=== PATIENT | female | born 1995 | race Caucasian/White ===

== ENCOUNTER 2017-06-20 11:56 | Outpatient (CLI) | payer BC, OTHER ==
[2017-06-20 12:35] VITALS: BP 126/65; PULSE 80; RESP 16; TEMP 97.7
--- NOTE | 2017-08-01 10:13 | P.MSEPDOC ---
Presenting Problems - Arrival Data Date of Arrival on Unit: 06/20/17 Time of Arrival on Unit: 11:56 Mode of Transport: Ambulatory - Complaint OB-Reason for Admission/Chief Complaint: Rule Out PROM Comment: pt arrived c/o moisture in underwear and mucus with some blood when pt wiped. pt questioning whether her water broke Medical History - Information : 1 Para: 0 Term: 0 : 0 Abortions: Spontaneous or Elective: 0 Number of Living Children: 0 - Gestational Age Gestational Age by GANESH (wks/days): 39 Weeks and 1 Days Review of Systems - Review of Systems Constitutional: No problems Breast: No problems ENT: No problems Cardiovascular: No problems Respiratory: No problems Gastrointestinal: No problems Genitourinary: No problems Musculoskeletal: No problems Neurological: No problems Skin: No problems Vital Signs - Temperature Temperature: 97.7 F Temperature Source: Oral - Pulse Right Brachial Pulse Rate: 80 Pulse Assessment Method: Automatic Cuff - Respirations Respiratory Rate: 16 Oxygen Delivery Method: Room Air O2 Sat by Pulse Oximetry: 98 - Blood Pressure Right Arm Blood Pressure: 126/65 Blood Pressure Mean: 85 Blood Pressure Source: Automatic Cuff Medical Screen Scoring (Post) - Cervical Exam Dilation: 1-3 cm = 1 Membranes: Intact - Uterine Contractions Frequency: N/A - Maternal Vital Signs Maternal Temperature: N/A Maternal Blood Pressure: N/A Signs of Preeclampsia: N/A Maternal Respirations: N/A - Pain Assessment Pain Scale Used: Numeric (1 - 10) Pain Intensity: 1 Pain Management Goal: 1 Pain Behavior: Vocalization - Maternal Trauma Maternal Trauma: N/A - Assessment Heart Rate: 130 Heart Rate - NICHD Category: Category I (Normal) = 0 NST: Reactive Position: N/A Station: N/A - Total Score Total Score (Post): 1 - Post Treatment Level of Risk Post Treatment Level of Risk: Low (0-5) Physician Notification (Post) - Physician Notified Physician Notified Date: 06/20/17 Physician Notified Time: 12:50 Physician/Practitioner Notified:: dr lira Spoke With: dr lira New Order Received: No - Notification Comment Comment: amnisure negative reactive nst. return friday for scheduled induction Disposition - Disposition OB Disposition: Discharge to home Discharge Date: 06/20/17 Discharge Time: 13:03 I agree with the RN Medical Screening Exam: Yes Risk & Benefit of care provided described in d/c instruction: Yes Diagnosis: FALSE LABOR AT OR AFTER 37 COMPLETED WEEKS OF GESTATION
== END 2017-06-20 13:03 | disposition home or self-care (01) ==
LOC: FBPOP 11:56
PROVIDERS: ATTEND Obstetrics & Gynecology Obstetrics
DX: O47.1 False labor at or after 37 completed weeks of gestation (principal); Z3A.39 39 weeks gestation of pregnancy
CPT/HCPCS: 59025; 84112; 99213

== ENCOUNTER 2017-06-23 06:04 | Inpatient (IN) | payer BC, OTHER ==
[2017-06-23] MEDS: LACTATED RINGERS 1,000 ML IV SCH ×3 (06:20→15:15)
[2017-06-23] MEDS ORDERED: PENICILLIN G POTASSIUM 5,000,000 UNIT in DEXTROSE 5% IN WATER 100 ML IVPB STA ×2 (06:23)
[2017-06-23] MEDS ORDERED: TERBUTALINE 1 MG/ML VIAL SQ PRN (06:23)
[2017-06-23] MEDS ORDERED: OXYTOCIN 10 UNIT/ML 1 ML VIAL IM PRN (06:23)
[2017-06-23] MEDS ORDERED: CARBOPROST TROMETHAMINE 250 MCG/ML 1 ML AMP IM PRN (06:23)
[2017-06-23] MEDS ORDERED: METHYLERGONOVINE 0.2 MG/ML 1 ML AMP IM PRN (06:23)
[2017-06-23] MEDS ORDERED: LIDOCAINE 1% (PF) 10 MG/ML (30 ML SDV) SQ PRN (06:23)
[2017-06-23] MEDS ORDERED: OXYTOCIN 20 UNITS/1000 ML NS 1,000 ML IV SCH ×2 (06:30→18:00)
[2017-06-23 06:32] LABS: Basophils % (A) 0 %; Eosinophils # (A) 0.1 k/uL (0-0.7); Eosinophils % (A) 1 %; HCT 39.5 % (34.0-46.0); HGB 13.1 gm/dL (11.4-16.0); Lymphocytes % (A) 13 %; MCH 29.7 pg (25.0-35.0); MCHC 33.1 g/dL (31.0-37.0); MCV 89.8 fL (80.0-100.0); Monocytes # (A) 0.4 k/uL (0-1.0); Monocytes % (A) 5 %; Neutrophils # (A) 6.1 k/uL (1.3-7.7); Neutrophils % (A) 79 %; Platelet Count 298 k/uL (150-450); WBC 7.7 k/uL (4.0-11.0)
[2017-06-23 06:46] VITALS: BMI 45.8
--- NOTE | 2017-06-23 08:34 | P.HPOB ---
History of Present Illness H&P Date: 06/23/17 Chief Complaint: IUP at 39-4/7 weeks, elective induction of labor This is a 22-year-old 1 para 0 at 39-4/7 weeks with an estimated due date of June 26. She presents to labor and delivery for elective induction of labor. She denies any concerns, and notes irregular contractions. She denies loss of fluid or vaginal bleeding and states good movement. Her blood type is O+, rubella immune, hepatitis B surface injured negative, GBS is positive, HIV negative, RPR nonreactive. She does have a history of hypothyroidism and marijuana use with a positive UDS on 01/07/2017. Review of Systems Constitutional: Denies chills, Denies fever Respiratory: Denies cough, Denies dyspnea Gastrointestinal: Denies constipation, Denies diarrhea Genitourinary: Reports Past Medical History Past Medical History: Thyroid Disorder History of Any Multi-Drug Resistant Organisms: None Reported Past Surgical History: No Surgical Hx Reported Past Anesthesia/Blood Transfusion Reactions: Unable to Obtain Past Psychological History: No Psychological Hx Reported Smoking Status: Former smoker Past Alcohol Use History: None Reported Past Drug Use History: None Reported - Past Family History Father History Unknown: Yes Family Medical History: Diabetes Mellitus Mother Family Medical History: Thyroid Disorder Medications and Allergies Home Medications Medication Instructions Recorded Confirmed Type Pedi Multivit No.25/Folic Acid 2 tab PO DAILY 06/20/17 06/23/17 History [Flintstones Multivit Chew Tab] Allergies Allergy/AdvReac Type Severity Reaction Status Date / Time No Known Allergies Allergy Verified 06/23/17 06:22 Exam Osteopathic Statement: *. No significant issues noted on an osteopathic structural exam other than those noted in the History and Physical/Consult. - Vital Signs Vital signs: Vital Signs Temp Pulse Resp BP 06/23/17 06:21 97.1 F L 105 H 18 138/67 Intake and Output 06/22/17 06/23/17 06/23/17 22:59 06:59 14:59 Other: Weight 140.614 kg - OBG Physical Exam Abdomen: Gravid and appropriate for gestational age Cervix: 3-4, 60, -2 rupture of membranes with clear fluid noted Results Result Diagrams: 06/23/17 06:20 Assessment and Plan (1) Term Narrative/Plan: We'll plan Pitocin induction of labor. Pitocin is ordered and will be managed per protocol. She would like an epidural during this labor. Current Visit: Yes Status: Acute Code(s): Z34.80 - ENCOUNTER FOR SUPRVSN OF NORMAL , UNSP TRIMESTER SNOMED Code(s): 06926954 (2) Positive GBS test Narrative/Plan: Antibiotics are ordered, amoxicillin will be given for prophylaxis. Current Visit: Yes Status: Acute Code(s): B95.1 - STREPTOCOCCUS, GROUP B, CAUSING DISEASES [facility] SNOMED Code(s): 9057018851933 (3) Marijuana use Narrative/Plan: We will obtain UDS from patient, and patient is informed of meconium screen will be needed from the baby. Current Visit: Yes Status: Acute Code(s): F12.90 - CANNABIS USE, UNSPECIFIED , UNCOMPLICATED SNOMED Code(s): 483133412
[2017-06-23 09:03] LABS: Amphetamine Screen,Urine Not Detected (NotDetected); Barbiturate Screen,Urine Detected (NotDetected); Benzodiazepines Screen,Urine Not Detected (NotDetected); Cocaine Screen,Urine Not Detected (NotDetected); Methadone Screen, Urine Not Detected (NotDetected); Opiate Screen,Urine Not Detected (NotDetected); Oxycodone Screen, Urine Not Detected (NotDetected); Phencyclidine Screen,Urine Not Detected (NotDetected); Tricyclic Antidepressant,Urine Not Detected (NotDetected); Urn Cannabinoid Scrn Not Detected (NotDetected)
[2017-06-23] MEDS ORDERED: BUTORPHANOL 1 MG/ML 1 ML VIAL IV ONE (09:46)
[2017-06-23] MEDS: PENICILLIN G POTASSIUM 2,500,000 UNIT in DEXTROSE 5% IN WATER 100 ML IVPB SCH ×4 (10:58→15:12)
[2017-06-23] MEDS ORDERED: BUPIVACAINE (PF) 0.25% 30 ML VIAL ONE (11:29)
[2017-06-23] MEDS ORDERED: SODIUM CHLORIDE 0.9% 100 ML BAG ONE (11:29)
[2017-06-23] MEDS ORDERED: fentaNYL (PF) 50 MCG/ML 5 ML AMP ONE (11:29)
[2017-06-23] MEDS ORDERED: diphenhydrAMINE 25 MG CAP PO PRN (17:46)
[2017-06-23] MEDS ORDERED: Acetaminophen-Codeine 300-30mg TAB PO PRN ×2 (17:46)
[2017-06-23] MEDS ORDERED: HYDROCORTISONE 2.5% RECTAL CREAM 30 GM TUBE RECTAL PRN (17:46)
[2017-06-23] MEDS ORDERED: ZOLPIDEM 5 MG TAB PO PRN (17:46)
[2017-06-23] MEDS ORDERED: diphenhydrAMINE 50 MG CAP PO PRN (17:46)
[2017-06-23] MEDS ORDERED: ACETAMINOPHEN TAB 325 MG TAB PO PRN (17:46)
[2017-06-23] MEDS ORDERED: SIMETHICONE 80 MG CHEWABLE PO PRN (17:46)
[2017-06-23] MEDS ORDERED: BENZOCAINE/MENTHOL SPRAY 1 GM/SPRAY AEROSOL TOPICAL PRN (17:46)
[2017-06-23] MEDS ORDERED: WITCH HAZEL 1 EACH MED..PAD TOPICAL PRN (17:46)
[2017-06-23] MEDS ORDERED: LANOLIN CREAM 5 GM TUBE TOPICAL PRN (17:46)
[2017-06-23] MEDS ORDERED: diphenhydrAMINE 50 MG/ML 1 ML VIAL IVP PRN ×2 (17:46)
--- NOTE | 2017-06-23 17:53 | P.PROBDLV ---
Vaginal Delivery Note - . Vaginal Delivery Note: This very pleasant 22-year-old 1 para 0 at 39-4/7 weeks that presented to labor and delivery for elective induction of labor today. Patient was started on Pitocin induction of labor and progressed through labor eventually having amniotomy being performed clear fluid was obtained. She requested an epidural soon afterwards and was comfortable she progressed through labor becoming complete and had a spontaneous vaginal delivery of a viable male infant at 17 ;29, weight of 7 lbs. 11 oz. and Apgars of 9 and 9 at one and 5 minutes respectively. Patient pushed down to , had infant's head was delivered in the usual fashion, anterior shoulder gently delivered followed by posterior shoulder , A Spontaneous cry was noted at . A loose nuchal cord x 2 was noted and delviered through with out difficulty. The cord was then doubly clamped and cut a three-vessel cord was noted. The placenta was then delivered spontaneously intact. On inspection the patient's vaginal vault a second- degree midline laceration was noted this was repaired in the usual fashion with 3-0 Vicryl. A small anterior vaginal laceration was noted in addition this was then repaired with 4-0 chromic. Hemostasis was then appreciated the uterus then felt to be firm and below the umbilicus. Estimated blood loss was felt to be around 300 mL, patient tolerated delivery well was doing well in addition.
[2017-06-23] MEDS: SENNOSIDES-DOCUSATE SODIUM 1 EACH TAB PO SCH (19:59)
[2017-06-23] MEDS: IBUPROFEN 600 MG TAB PO PRN (23:44)
[2017-06-24 09:04] VITALS: TEMP 97.9
--- NOTE | 2017-06-24 10:20 | P.DS ---
Providers Date of admission: 06/23/17 06:04 Expected date of discharge: 06/24/17 Attending physician: Neeta Levy Primary care physician: Stated None - Discharge Diagnosis(es) (1) Term This is a very pleasant 22-year-old 1 para 0 that presented to labor and delivery yesterday for elective induction of labor. Patient was begun on Pitocin augmentation of labor and progressed to complete. She did eventually get an epidural and had a normal spontaneous vaginal delivery of a viable male infant at 1729, Apgars of 9 and 9 at one and 5 minutes respectively. Jus Contreras, weight 7 lbs. 11 oz. Her course has been uneventful. She is ambulating and voiding without difficulty. She is tolerating a regular diet without nausea or vomiting. She denies complaints and wishes to be discharged home. She is breast-feeding in addition without difficulty Current Visit: Yes Status: Acute (2) Positive GBS test Current Visit: Yes Status: Acute (3) Marijuana use Current Visit: Yes Status: Acute Plan - Discharge Summary New Discharge Prescriptions: No Action Pedi Multivit No.25/Folic Acid [Flintstones Multivit Chew Tab] 2 tab PO DAILY Discharge Medication List Pedi Multivit No.25/Folic Acid [Flintstones Multivit Chew Tab] 2 tab PO DAILY [History] Follow up Appointment(s)/Referral(s): Neeta Levy DO [Doctor of Osteopathic Medicine] - 4 Weeks Patient Instructions/Handouts: Vaginal Delivery (DC), Caring for Your Baby (DC) , Your [place]'s Appearance (DC)
[2017-06-24] MEDS ORDERED: PRENATAL VIT-IRON-FOLIC ACID 1 EACH CAP PO SCH (12:00)
[2017-06-24] MEDS: IBUPROFEN 600 MG TAB PO PRN (17:09)
[2017-06-24 17:14] VITALS: BP 105/65; PULSE 87; RESP 18
[2017-06-24] MEDS: SENNOSIDES-DOCUSATE SODIUM 1 EACH TAB PO SCH (18:16)
== END 2017-06-24 16:40 | disposition home or self-care (01) | DRG 775 ==
LOC: 4FBP 06:04
PROVIDERS: ADMIT Obstetrics & Gynecology Obstetrics; ATTEND Obstetrics & Gynecology Obstetrics
DX: O99.824 Streptococcus B carrier state complicating childbirth (principal); F12.90 Cannabis use, unspecified, uncomplicated; Z37.0 Single live birth; Z3A.39 39 weeks gestation of pregnancy; O99.324 Drug use complicating childbirth; O69.81X0 Labor and delivery complicated by cord around neck, without compression, not applicable or unspecified; Z87.891 Personal history of nicotine dependence; O71.4 Obstetric high vaginal laceration alone
CPT/HCPCS: 80306; 85025; 88307

== ENCOUNTER 2018-06-15 14:36 | Emergency (ER) | payer BC, OTHER ==
--- NOTE | 2018-06-15 15:09 | ED ---
General Adult HPI - General Chief complaint: Abdominal Pain Stated complaint: Constipation Time Seen by Provider: 06/15/18 14:46 Source: patient, RN notes reviewed Mode of arrival: ambulatory Limitations: no limitations - History of Present Illness Initial comments: 22-year-old female presents to the emergency department for a chief complaint of painful hemorrhoids. Patient states she has had hemorrhoids since November. She states that over the past 3 months they have been very painful. She states the pain is worsened when having a bowel movement. Patient states she went to another emergency department yesterday and they gave her a GI referral. She states she came here to see if we could do anything else. She denies any abdominal pain at this time. Denies bloody stools. Patient has no other complaints at this time including shortness of breath, chest pain, abdominal pain, nausea or vomiting, headache, or visual changes. - Related Data Home Medications Medication Instructions Recorded Confirmed Ibuprofen [Motrin Ib] 600 mg PO Q6H PRN 06/15/18 06/15/18 Polyethylene Glycol 3350 [Miralax] 17 gm PO DAILY 06/15/18 06/15/18 Allergies Allergy/AdvReac Type Severity Reaction Status Date / Time No Known Allergies Allergy Verified 06/15/18 14:47 Review of Systems ROS Statement: Those systems with pertinent positive or pertinent negative responses have been documented in the HPI. ROS Other: All systems not noted in ROS Statement are negative. Past Medical History Past Medical History: Thyroid Disorder Additional Past Medical History / Comment(s): hemorrhoids History of Any Multi-Drug Resistant Organisms: None Reported Past Surgical History: No Surgical Hx Reported Past Anesthesia/Blood Transfusion Reactions: Unable to Obtain Past Psychological History: No Psychological Hx Reported Smoking Status: Former smoker Past Alcohol Use History: None Reported Past Drug Use History: None Reported - Past Family History Father History Unknown: Yes Family Medical History: Diabetes Mellitus Mother Family Medical History: Thyroid Disorder General Exam Limitations: no limitations General appearance: alert, in no apparent distress Head exam: Present: atraumatic, normocephalic, normal inspection Eye exam: Present: normal appearance, PERRL, EOMI. Absent: scleral icterus, conjunctival injection, periorbital swelling ENT exam: Present: normal exam, mucous membranes moist Neck exam: Present: normal inspection, full ROM. Absent: tenderness, meningismus, lymphadenopathy Respiratory exam: Present: normal lung sounds bilaterally. Absent: respiratory distress, wheezes, rales, rhonchi, stridor Cardiovascular Exam: Present: regular rate, normal rhythm, normal heart sounds. Absent: systolic murmur, diastolic murmur, rubs, gallop, clicks GI/Abdominal exam: Present: soft, normal bowel sounds. Absent: distended, tenderness, guarding, rebound, rigid Rectal exam: Present: hemorrhoids (Patient has a external hemorrhoid, hemorrhoid not thrombosed.) Neurological exam: Present: alert, oriented X3, CN II-XII intact Psychiatric exam: Present: normal affect, normal mood Course Vital Signs 06/15/18 14:38 Temperature 98.5 F Pulse Rate 91 Respiratory 18 Rate Blood Pressure 153/100 O2 Sat by Pulse 100 Oximetry Medical Decision Making - Medical Decision Making 22-year-old female without any past medical history presents for painful hemorrhoids. These have been ongoing for months. Sates pain occurs when she has a bowel movement. Patient states she was seen at another emergency department and given a referral to GI but wanted to see if we could do anything differently. On exam there is an external hemorrhoid present however this is not thrombosed. At this time patient will be given a referral to general surgery. Discussed continuing hemorrhoid cream and returning if she has any worsening symptoms. Disposition Clinical Impression: Hemorrhoids Disposition: HOME SELF-CARE Condition: Good Additional Instructions: Please follow up with general surgery for hemorrhoid. Please follow-up with primary care for blood pressure. Please return here to the emergency department if you have any worsening symptoms. Is patient prescribed a controlled substance at d/c from ED?: No Referrals: Manda Correia MD [Primary Care Provider] - 1-2 days Mario Geronimo MD [STAFF PHYSICIAN] - 1-2 days Time of Disposition: 15:09
[2018-06-15 15:28] VITALS: BP 132/81; PULSE 86; RESP 16; TEMP 98.9
== END 2018-06-15 15:29 | disposition home or self-care (01) ==
LOC: EC 14:36
DX: K64.4 Residual hemorrhoidal skin tags (principal); Z87.891 Personal history of nicotine dependence
CPT/HCPCS: 99283

== ENCOUNTER 2020-05-23 10:00 | Outpatient (CLI) | payer BC, OTHER ==
[2020-05-23 10:43] LABS: Creatinine,Urine Random 34.2 mg/dL; Protein/Creatinine Ratio,Urine 0.38
[2020-05-23 10:47] LABS: Basophils # (A) 0.1 k/uL (0-0.2); Basophils % (A) 1 %; Eosinophils # (A) 0.1 k/uL (0-0.7); Eosinophils % (A) 1 %; HCT 37.9 % (34.0-46.0); HGB 12.9 gm/dL (11.4-16.0); Lymphocytes # (A) 1.5 k/uL (1.0-4.8); Lymphocytes % (A) 16 %; MCH 30.3 pg (25.0-35.0); MCHC 33.9 g/dL (31.0-37.0); MCV 89.4 fL (80.0-100.0); Mean Platelet Volume 8.4; Monocytes # (A) 0.4 k/uL (0-1.0); Monocytes % (A) 4 %; Neutrophils # (A) 7.3 k/uL (1.3-7.7); Neutrophils % (A) 78 %; Platelet Count 275 k/uL (150-450); RBC 4.24 m/uL (3.80-5.40); RDW 13.7 % (11.5-15.5); WBC 9.4 k/uL (3.8-10.6)
[2020-05-23 10:47] LABS: Appearance,Urine Cloudy (Clear); Bacteria,Urine Many /hpf; Bilirubin,Urine Negative (Negative); Blood,Urine Negative (Negative); Color,Urine Light Yellow; Glucose,Urine (UA) Negative (Negative); Ketones,Urine Negative (Negative); Leukocyte Esterase,Urine Large (Negative); Nitrite,Urine Negative (Negative); PH, Urine 6.5 (5.0-8.0); Protein,Urine Negative (Negative); Specific Gravity,Urine 1.003 (1.001-1.035); Squamous Epithelial Cell,Urine 2 /hpf (0-4); Urobilinogen,Urine <2.0 mg/dL (<2.0); WBC,Urine 15 /hpf (0-5)
[2020-05-23 11:10] LABS: ALT 78 U/L (4-34); AST 48 U/L (14-36); African American GFR (CKD) >90 (>60 ml/min/1.73 sqM); Blood Urea Nitrogen 5 mg/dL (7-17); LDH 296 U/L (313-618); Non-African American GFR(CKD) >90 (>60 ml/min/1.73 sqM); Uric Acid 4.1 mg/dL (3.7-7.4)
[2020-05-23 11:14] LABS: Prothrombin Time 10.4 sec (9.0-12.0)
[2020-05-23] MEDS ORDERED: BETAMET ACET-BETAMETH SOD PHOS 6 MG/ML MDV IM SCH (13:15)
--- NOTE | 2020-05-23 14:21 | US ---
EXAMINATION TYPE: US liver DATE OF EXAM: 05/23/2020 COMPARISON: NONE CLINICAL HISTORY: elevated liver enzymes, PIH. Elevated liver enzymes, patient is 32 weeks EXAM MEASUREMENTS: The was not evaluated at this time. Liver Length: 20.3 cm Gallbladder Wall: 0.2 cm CBD: 0.4 cm Right Kidney: 13.8 x 3.9 x 6.1cm Pancreas: limited evaluation due to overlying bowel Liver: enlarged, attenuating Gallbladder: no evidence of stones Evidence for sonographic Roberson's sign: no CBD: appears wnl Right Kidney: no evidence of hydronephrosis IMPRESSION: 1. Right upper quadrant ultrasound appears unremarkable
== END 2020-05-23 13:47 | disposition home or self-care (01) ==
LOC: FBPOP 10:00
PROVIDERS: ATTEND Obstetrics & Gynecology
DX: O14.90 Unspecified pre-eclampsia, unspecified trimester (principal); Z3A.00 Weeks of gestation of pregnancy not specified
CPT/HCPCS: 59025; 96372; 82570; 84156; 82565; 83615; 84450; 84460; 84520; 84550; 85025; 85610; 85730; 81001; 76705; G0463; J0702; 99215

== ENCOUNTER 2020-05-24 12:53 | Outpatient (CLI) | payer BC, OTHER ==
[2020-05-24] MEDS ORDERED: BETAMET ACET-BETAMETH SOD PHOS 6 MG/ML MDV IM SCH (13:15)
[2020-05-24 13:38] LABS: Amorphous Sediment,Urine Rare /hpf; Appearance,Urine Clear (Clear); Bacteria,Urine Occasional /hpf; Bilirubin,Urine Negative (Negative); Blood,Urine Negative (Negative); Color,Urine Yellow; Glucose,Urine (UA) Negative (Negative); Ketones,Urine Negative (Negative); Leukocyte Esterase,Urine Small (Negative); Nitrite,Urine Negative (Negative); PH, Urine 6.5 (5.0-8.0); Protein,Urine Negative (Negative); Specific Gravity,Urine 1.005 (1.001-1.035); Squamous Epithelial Cell,Urine <1 /hpf (0-4); Urobilinogen,Urine <2.0 mg/dL (<2.0); WBC,Urine 3 /hpf (0-5)
[2020-05-24 13:58] LABS: Creatinine,Urine Random 61.9 mg/dL; Protein/Creatinine Ratio,Urine 0.226
[2020-05-24 14:29] LABS: Basophils % (A) 0 %; Eosinophils % (A) 0 %; HCT 38.3 % (34.0-46.0); HGB 12.4 gm/dL (11.4-16.0); Lymphocytes # (A) 1.9 k/uL (1.0-4.8); Lymphocytes % (A) 16 %; MCH 29.6 pg (25.0-35.0); MCHC 32.3 g/dL (31.0-37.0); MCV 91.5 fL (80.0-100.0); Mean Platelet Volume 8.4; Monocytes # (A) 0.6 k/uL (0-1.0); Monocytes % (A) 5 %; Neutrophils # (A) 9.1 k/uL (1.3-7.7); Neutrophils % (A) 77 %; Platelet Count 299 k/uL (150-450); RBC 4.18 m/uL (3.80-5.40); RDW 14.3 % (11.5-15.5); WBC 11.9 k/uL (3.8-10.6)
[2020-05-24 14:38] LABS: ALT 100 U/L (4-34); AST 64 U/L (14-36); African American GFR (CKD) >90 (>60 ml/min/1.73 sqM); Blood Urea Nitrogen 7 mg/dL (7-17); LDH 436 U/L (313-618); Non-African American GFR(CKD) >90 (>60 ml/min/1.73 sqM); Uric Acid 3.8 mg/dL (3.7-7.4)
--- NOTE | 2020-06-27 18:59 | P.MSEPDOC ---
Presenting Problems - Arrival Data Date of Arrival on Unit: 05/24/20 Time of Arrival on Unit: 12:53 Mode of Transport: Ambulatory Disposition - Disposition Discharge Date: 05/24/20 Discharge Time: 15:46 I agree with the RN Medical Screening Exam: Yes Case reviewed; plan agreed upon as documented in EMR&OBIX.: Yes Diagnosis: RELATED CONDITIONS, UNSPECIFIED, THIRD TRIMESTER
== END 2020-05-24 15:46 | disposition home or self-care (01) ==
LOC: FBPOP 12:53
PROVIDERS: ATTEND Obstetrics & Gynecology
DX: O26.833 Pregnancy related renal disease, third trimester (principal); O14.90 Unspecified pre-eclampsia, unspecified trimester; Z3A.00 Weeks of gestation of pregnancy not specified
CPT/HCPCS: 59025; 82570; 84156; 82565; 83615; 84450; 84460; 84520; 84550; 85025; 81001; J0702

== ENCOUNTER 2020-06-27 05:55 | Inpatient (IN) | payer OTHER ==
[2020-06-27] MEDS ORDERED: LIDOCAINE 0.5% (PF) 5 MG/ML (50 ML SDV) SQ PRN (06:13)
[2020-06-27] MEDS ORDERED: OXYTOCIN 10 UNIT/ML 1 ML VIAL IM PRN (06:13)
[2020-06-27] MEDS ORDERED: CARBOPROST TROMETHAMINE 250 MCG/ML 1 ML AMP IM PRN (06:13)
[2020-06-27] MEDS ORDERED: TERBUTALINE 1 MG/ML VIAL SQ PRN (06:13)
[2020-06-27] MEDS ORDERED: METHYLERGONOVINE 0.2 MG/ML 1 ML AMP IM PRN (06:13)
[2020-06-27] MEDS ORDERED: OXYTOCIN 30 UNITS/500 ML NS 30 UNIT in SALINE 1 500ML.BAG IV SCH ×2 (06:13→15:30)
[2020-06-27] MEDS: LACTATED RINGERS 1,000 ML IV SCH ×3 (06:20→13:47)
[2020-06-27 06:45] LABS: Basophils % (A) 0 %; Eosinophils # (A) 0.1 k/uL (0-0.7); Eosinophils % (A) 1 %; HCT 37.5 % (34.0-46.0); HGB 12.8 gm/dL (11.4-16.0); Lymphocytes # (A) 2.2 k/uL (1.0-4.8); Lymphocytes % (A) 19 %; MCH 30.7 pg (25.0-35.0); MCHC 34.1 g/dL (31.0-37.0); Mean Platelet Volume 8.2; Monocytes # (A) 0.5 k/uL (0-1.0); Monocytes % (A) 4 %; Neutrophils # (A) 8.3 k/uL (1.3-7.7); Neutrophils % (A) 74 %; Platelet Count 311 k/uL (150-450); RBC 4.17 m/uL (3.80-5.40); RDW 13.6 % (11.5-15.5); WBC 11.3 k/uL (3.8-10.6)
[2020-06-27] MEDS ORDERED: SODIUM CHLORIDE 0.9% 100 ML BAG ONE (10:47)
[2020-06-27] MEDS ORDERED: ROPIVACAINE 5MG/ML 20ML VIAL ONE (10:47)
[2020-06-27] MEDS ORDERED: fentaNYL (PF) 50 MCG/ML 5 ML AMP ONE (10:47)
[2020-06-27] MEDS ORDERED: HYDROCORTISONE 2.5% RECTAL CREAM 30 GM TUBE RECTAL PRN (15:19)
[2020-06-27] MEDS ORDERED: BENZOCAINE/MENTHOL SPRAY 1 GM/SPRAY AEROSOL TOPICAL PRN (15:19)
[2020-06-27] MEDS ORDERED: SIMETHICONE 80 MG CHEWABLE PO PRN (15:19)
[2020-06-27] MEDS ORDERED: LANOLIN CREAM 5 GM TUBE TOPICAL PRN (15:19)
[2020-06-27] MEDS ORDERED: diphenhydrAMINE 50 MG/ML 1 ML VIAL IVP PRN ×2 (15:19)
[2020-06-27] MEDS ORDERED: diphenhydrAMINE 25 MG CAP PO PRN (15:19)
[2020-06-27] MEDS ORDERED: ZOLPIDEM 5 MG TAB PO PRN (15:19)
[2020-06-27] MEDS ORDERED: ACETAMINOPHEN TAB 325 MG TAB PO PRN (15:19)
[2020-06-27] MEDS ORDERED: diphenhydrAMINE 50 MG CAP PO PRN (15:19)
[2020-06-27] MEDS: IBUPROFEN 600 MG TAB PO PRN (15:59)
--- NOTE | 2020-06-27 16:59 | P.HPOB ---
History of Present Illness H&P Date: 06/27/20 Chief Complaint: Induction of labor for gestational hypertension 25-year-old presents at 37 weeks and 4 days for induction of labor due to gestational hypertension. She's had a few elevated blood pressures in my office and at one point did have elevated liver enzymes for possible fatty liver. heart tones are 135 with moderate variability and reactive. She is not sujit. Cervix is 3 cm dilated, 70% effaced, and -2 station. Review of Systems All systems: negative Constitutional: Denies chills, Denies fever Eyes: denies blurred vision, denies pain Ears, nose, mouth and throat: Denies headache, Denies sore throat Cardiovascular: Denies chest pain, Denies shortness of breath Respiratory: Denies cough Gastrointestinal: Denies abdominal pain, Denies diarrhea, Denies nausea, Denies vomiting Genitourinary: Denies dysuria, Denies hematuria Musculoskeletal: Denies myalgias Integumentary: Denies pruritus, Denies rash Neurological: Denies numbness, Denies weakness Psychiatric: Denies anxiety, Denies depression Endocrine: Denies fatigue, Denies weight change Past Medical History Past Medical History: Thyroid Disorder Additional Past Medical History / Comment(s): hemorrhoids. Obstetrical history: She's had one previous vaginal delivery. This is her second . She's had care with me since the first trimester. Blood type is O+, and by negative, rubella immune, hepatitis B-, GBS negative, HIV nonreactive, RPR nonreactive. She had some elevated blood pressures in my office. She did have consultation with maternal- medicine who recommended delivery at 37 weeks for gestational hypertension History of Any Multi-Drug Resistant Organisms: None Reported Past Surgical History: No Surgical Hx Reported Past Anesthesia/Blood Transfusion Reactions: Unable to Obtain Past Psychological History: No Psychological Hx Reported Smoking Status: Current every day smoker Past Alcohol Use History: None Reported Past Drug Use History: Marijuana - Past Family History Father History Unknown: Yes Family Medical History: Diabetes Mellitus Mother Family Medical History: Thyroid Disorder Medications and Allergies Home Medications Medication Instructions Recorded Confirmed Type Kzd589/Iron/FA/O3/Dha/Epa/Fish 1 tab PO ONCE 05/23/20 06/27/20 History [ Multi-Dha Softgel] Allergies Allergy/AdvReac Type Severity Reaction Status Date / Time No Known Allergies Allergy Verified 05/23/20 10:09 Exam Osteopathic Statement: *. No significant issues noted on an osteopathic structural exam other than those noted in the History and Physical/Consult. Vital Signs Temp Pulse Resp BP Pulse Ox 06/27/20 16:40 75 15 134/72 06/27/20 16:10 85 15 124/68 98 06/27/20 15:55 81 15 125/70 98 06/27/20 15:40 86 15 126/60 06/27/20 15:25 86 15 132/58 06/27/20 15:10 96.9 F L 88 15 134/60 98 06/27/20 06:28 96.2 F L 113 H 16 125/77 98 Intake and Output 06/27/20 06/27/20 06/27/20 06:59 14:59 22:59 Intake Total 8.6 Balance 8.6 Intake: Intake, IV Titration 8.6 Amount Oxytocin 30 Units/500 ml 8.6 Ns 30 unit In Saline 1 500ml.bag @ Per Protocol IV .Q0M [facility] Rx#:[id number] Other: Weight 153.314 kg Heart: Regular rate and rhythm Lungs: Clear to auscultation bilaterally Abdomen: Soft, nontender Extremities: Negative Homans sign Results Result Diagrams: 06/27/20 06:35 Abnormal Lab Results - Last 24 Hours (Table) 06/27/20 Range/Units 06:35 WBC 11.3 H (3.8-10.6) k/uL Neutrophils # 8.3 H (1.3-7.7) k/uL Assessment and Plan (1) Encounter for induction of labor Current Visit: Yes Status: Acute Code(s): Z34.90 - ENCNTR FOR SUPRVSN OF NORMAL , UNSP, UNSP TRIMESTER SNOMED Code(s): 543884668 (2) Gestational hypertension Current Visit: Yes Status: Acute Code(s): O13.9 - GESTATIONAL HTN W/O SIGNIFICANT PROTEINURIA, UNSP TRIMESTER SNOMED Code(s): 952242785 Plan: 1. Admit to family place 2. Induction of labor with amniotomy and Pitocin 3. Has been normal vaginal delivery
--- NOTE | 2020-06-27 17:01 | P.PROBDLV ---
Vaginal Delivery Note - . Vaginal Delivery Note: 25-year-old presents at 37 weeks and 4 days for induction of labor due to gestational hypertension. She's had a few elevated blood pressures in my office and at one point did have elevated liver enzymes for possible fatty liver. heart tones are 135 with moderate variability and reactive. She is not sujit. Cervix is 3 cm dilated, 70% effaced, and -2 station. Pitocin was started. Amniotomy performed at 8:03 AM and clear fluid noted. When she was uncomfortable she did get an epidural. Her cervix was completely dilated at 1443. She pushed, delivered viable female over intact perineum under epidural anesthesia at 1450. Head delivered KADI, nuchal cord 1 identified but patient pushed through and anterior shoulder delivered gentle downward guidance followed by Posterior shoulder and rest of body. Nose and mouth bulb suctioned, cord clamped and cut, placed mother's abdomen. Apgars 9, 10, weight 6 lbs. 15 oz. Placenta delivered spontaneously, intact with three-vessel cord at 1454. Vagina, cervix, perineum inspected. First-degree midline laceration was repaired with 3-0 Vicryl. Estimated blood loss 200 mL. Mother and baby in stable condition.
[2020-06-27 19:45] LABS: Partial Thromboplastin Time 24.6 sec (22.0-30.0); Prothrombin Time 10.3 sec (9.0-12.0)
[2020-06-27 20:38] VITALS: RESP 16
[2020-06-27] MEDS: SENNOSIDES-DOCUSATE SODIUM 1 EACH TAB PO SCH (20:59)
[2020-06-28] MEDS: IBUPROFEN 600 MG TAB PO PRN ×2 (01:58→08:31)
[2020-06-28 07:58] LABS: Basophils # (A) 0.1 k/uL (0-0.2); Basophils % (A) 0 %; Eosinophils # (A) 0.2 k/uL (0-0.7); Eosinophils % (A) 2 %; HCT 38.8 % (34.0-46.0); HGB 12.6 gm/dL (11.4-16.0); Lymphocytes # (A) 2.6 k/uL (1.0-4.8); Lymphocytes % (A) 20 %; MCH 29.5 pg (25.0-35.0); MCHC 32.5 g/dL (31.0-37.0); Mean Platelet Volume 8.1; Monocytes # (A) 0.5 k/uL (0-1.0); Monocytes % (A) 4 %; Neutrophils # (A) 9.2 k/uL (1.3-7.7); Neutrophils % (A) 73 %; Platelet Count 321 k/uL (150-450); RBC 4.26 m/uL (3.80-5.40); RDW 13.6 % (11.5-15.5); WBC 12.6 k/uL (3.8-10.6)
[2020-06-28] MEDS: SENNOSIDES-DOCUSATE SODIUM 1 EACH TAB PO SCH (08:31)
--- NOTE | 2020-06-28 10:31 | P.DS ---
Providers Date of admission: 06/27/20 05:55 Expected date of discharge: 06/28/20 Attending physician: Hilda Smith Primary care physician: Stated None - Discharge Diagnosis(es) (1) Encounter for induction of labor Current Visit: Yes Status: Resolved (2) Gestational hypertension Current Visit: Yes Status: Resolved (3) Normal vaginal delivery Current Visit: Yes Status: Acute Hospital Course: PT presented for induction of labor for gestational hypertension. She underwent a normal vaginal delivery without complications. Her BPs have been normal. Lochia is decreasing. She denies N/V, F/C, CP,SOB, calf pain. She will be discharged home PPD #1 in stable condition to follow up with me in 6 weeks. Plan - Discharge Summary New Discharge Prescriptions: New Ibuprofen [Motrin] 600 mg PO Q6HR PRN #30 tab PRN Reason: Mild Pain Or Fever >= 100.5 No Action [id number]/Iron/FA/O3/Dha/Epa/Fish [ Multi-Dha Softgel] 1 tab PO ONCE Discharge Medication List [id number]/Iron/FA/O3/Dha/Epa/Fish [ Multi-Dha Softgel] 1 tab PO ONCE 05/23/20 [History] Ibuprofen [Motrin] 600 mg PO Q6HR PRN #30 tab 06/28/20 [Rx] Follow up Appointment(s)/Referral(s): Hilda Smith DO [Doctor of Osteopathic Medicine] - 6 Weeks Discharge Disposition: HOME SELF-CARE
[2020-06-28 11:54] VITALS: BP 130/72; PULSE 68; TEMP 97.7
== END 2020-06-28 16:00 | disposition home or self-care (01) | DRG 807 ==
LOC: 4FBP 05:55
PROVIDERS: ADMIT Obstetrics & Gynecology; ATTEND Obstetrics & Gynecology
PROC: 10E0XZZ Delivery of Products of Conception, External Approach (ICD-10-PCS; principal; 2020-06-27)
PROC: 3E033VJ Introduction of Other Hormone into Peripheral Vein, Percutaneous Approach (ICD-10-PCS; 2020-06-27)
PROC: 10907ZC Drainage of Amniotic Fluid, Therapeutic from Products of Conception, Via Natural or Artificial Opening (ICD-10-PCS; 2020-06-27)
PROC: 0HQ9XZZ Repair Perineum Skin, External Approach (ICD-10-PCS; 2020-06-27)
PROC: 3E0R3BZ Introduction of Anesthetic Agent into Spinal Canal, Percutaneous Approach (ICD-10-PCS; 2020-06-27)
DX: O13.4 Gestational [pregnancy-induced] hypertension without significant proteinuria, complicating childbirth (principal); Z37.0 Single live birth; Z3A.37 37 weeks gestation of pregnancy; K76.0 Fatty (change of) liver, not elsewhere classified; O70.0 First degree perineal laceration during delivery; O69.81X0 Labor and delivery complicated by cord around neck, without compression, not applicable or unspecified; F17.200 Nicotine dependence, unspecified, uncomplicated; O99.334 Smoking (tobacco) complicating childbirth; O99.62 Diseases of the digestive system complicating childbirth; Z79.899 Other long term (current) drug therapy; Z83.3 Family history of diabetes mellitus
CPT/HCPCS: 85025; 85610; 85730; 86850; 86900; 86901; 88307

== ENCOUNTER 2020-07-01 09:47 | Emergency (ER) | payer BC, OTHER ==
--- NOTE | 2020-07-01 10:24 | ED ---
General Adult HPI - General Chief complaint: Fever Stated complaint: Fever Time Seen by Provider: 07/01/20 09:57 Source: patient Mode of arrival: ambulatory Limitations: no limitations - History of Present Illness Initial comments: Patient is a 25-year-old female, presenting to the emergency Department with complaints of a fever that started last night. Patient is 4 days , non-complicated vaginal delivery. She states last night she started having a fever 101, body aches and chills as well as having a headache. She was alternating between Tylenol and Motrin for most of the evening. She states her last dose of ibuprofen was approximately 5 hours prior to arrival. She still admits to some body aches and chills, mild headache. She denies any nausea or vomiting, no abdominal pain other than the normal intermittent cramping postdeli very. She denies any cough, no chest pain or shortness of breath. She denies any congestion. She states her bleeding has been decreasing as normal. She has no other complaints at this time. Upon arrival to the ER, her vital signs are stable, she is afebrile. - Related Data Home Medications Medication Instructions Recorded Confirmed [id number]/Iron/FA/O3/Dha/Epa/Fish 1 tab PO HS 05/23/20 07/01/20 [ Multi-Dha Softgel] Acetaminophen Tab [Tylenol Tab] 1,000 mg PO Q6HR PRN 07/01/20 07/01/20 Previous Rx's Medication Instructions Recorded Ibuprofen [Motrin] 600 mg PO Q6HR PRN #30 tab 06/28/20 Cephalexin [Keflex] 500 mg PO BID 5 Days #10 cap 07/01/20 Allergies Allergy/AdvReac Type Severity Reaction Status Date / Time No Known Allergies Allergy Verified 07/01/20 11:02 Review of Systems ROS Statement: Those systems with pertinent positive or pertinent negative responses have been documented in the HPI. ROS Other: All systems not noted in ROS Statement are negative. Past Medical History Past Medical History: Thyroid Disorder Additional Past Medical History / Comment(s): hemorrhoids. Obstetrical history: She's had one previous vaginal delivery. This is her second . She's had care with me since the first trimester. Blood type is O+, and by negative, rubella immune, hepatitis B-, GBS negative, HIV nonreactive, RPR nonreactive. She had some elevated blood pressures in my office. She did have consultation with maternal- medicine who recommended delivery at 37 weeks for gestational hypertension History of Any Multi-Drug Resistant Organisms: None Reported Past Surgical History: No Surgical Hx Reported Past Anesthesia/Blood Transfusion Reactions: Unable to Obtain Past Psychological History: No Psychological Hx Reported Smoking Status: Current every day smoker Past Alcohol Use History: None Reported Past Drug Use History: Marijuana - Past Family History Father History Unknown: Yes Family Medical History: Diabetes Mellitus Mother Family Medical History: Thyroid Disorder General Exam - General Exam Comments Initial Comments: GENERAL: Patient is well-developed and well-nourished. Patient is nontoxic and in no acute distress. HEAD: Atraumatic, normocephalic. EYES: Pupils equal round and reactive to light, extraocular movements intact, sclera anicteric, conjunctiva are normal. Eyelids were unremarkable. ENT: TMs normal, nares patent, oropharynx clear without exudates. Moist mucous membranes. NECK: Normal range of motion, supple without lymphadenopathy or JVD. LUNGS: Unlabored respirations. Breath sounds clear to auscultation bilaterally and equal. No wheezes rales or rhonchi. HEART: Regular rate and rhythm without murmurs, rubs or gallops. ABDOMEN: Very mild lower abdominal cramping with palpation but no pain. Soft, normoactive bowel sounds. No guarding, no rebound. No masses appreciated. : Deferred MUSCULOSKELETAL: Normal extremities with adequate strength and normal range of motion, no pitting or edema. No clubbing or cyanosis. NEUROLOGICAL: Patient is alert and oriented x 3. Motor and sensory are also intact. Cranial nerves II through XII grossly intact. Symmetrical smile. Normal speech, normal gait. PSYCH: Normal mood, normal affect. SKIN: Warm, Dry, normal turgor, no rashes or lesions noted. Limitations: no limitations Course Vital Signs 07/01/20 07/01/20 07/01/20 09:49 10:09 11:43 Temperature 98.9 F 99.5 F Pulse Rate 95 89 Respiratory 20 17 Rate Blood Pressure 170/100 139/86 134/62 O2 Sat by Pulse 99 100 Oximetry Medical Decision Making - Medical Decision Making Patient is a 25-year-old female presenting with a fever that started last night. She is 4 days , normal vaginal delivery. [employer] DEL[employer] MAIL CARRIER is Dr. Smith. Patient has no other complaints, no cough, no shortness of breath. No abdominal pain, no vomiting. I did do basic lab work, patient is a normal white count, normal kidney function. Rapid Covid and influenza are both not detected. Urine does have a large amount of WBC clumps, bacteria. Urine culture is pending. Since vital signs have been stable here, she's been afebrile, normal blood pres sure. I discussed with patient that her fever could be still viral in nature, possible UTI related. I will start patient on Keflex, a dose of Rocephin here in the ER. Patient needs to follow up with her [employer] MAIL [facility]ER on Friday morning. Patient is stable for discharge. Patient is in agreement with this plan of care. Return parameters were discussed with the patient and they verbalized understanding. Case discussed with Dr. Lewis. - Lab Data Result diagrams: 07/01/20 10:21 07/01/20 10:21 Lab Results 07/01/20 07/01/20 07/01/20 Range/Units 10:21 10:21 10:21 WBC 7.6 (3.8-10.6) k/uL RBC 4.39 (3.80-5.40) m/uL Hgb 13.1 (11.4-16.0) gm/dL Hct 39.4 (34.0-46.0) % MCV 89.8 (80.0-100.0) fL MCH 29.8 (25.0-35.0) pg MCHC 33.1 (31.0-37.0) g/dL RDW 13.4 (11.5-15.5) % Plt Count 301 (150-450) k/uL MPV 7.8 Neutrophils % 81 % Lymphocytes % 11 % Monocytes % 5 % Eosinophils % 2 % Basophils % 0 % Neutrophils # 6.1 (1.3-7.7) k/uL Lymphocytes # 0.9 L (1.0-4.8) k/uL Monocytes # 0.4 (0-1.0) k/uL Eosinophils # 0.1 (0-0.7) k/uL Basophils # 0.0 (0-0.2) k/uL Sodium (137-145) mmol/L Potassium (3.5-5.1) mmol/L Chloride (98-107) mmol/L Carbon Dioxide (22-30) mmol/L Anion Gap mmol/L BUN (7-17) mg/dL Creatinine (0.52-1.04) mg/dL Est GFR (CKD-EPI)AfAm (>60 ml/min/1.73 sqM) Est GFR (CKD-EPI)NonAf (>60 ml/min/1.73 sqM) Glucose (74-99) mg/dL Calcium (8.4-10.2) mg/dL Total Bilirubin (0.2-1.3) mg/dL AST (14-36) U/L ALT (4-34) U/L Alkaline Phosphatase (38-126) U/L Total Protein (6.3-8.2) g/dL Albumin (3.5-5.0) g/dL Urine Color Urine Appearance (Clear) Urine pH (5.0-8.0) Ur Specific [place] (1.001-1.035) Urine Protein (Negative) Urine Glucose (UA) (Negative) Urine Ketones (Negative) Urine Blood (Negative) Urine Nitrite (Negative) Urine Bilirubin (Negative) Urine Urobilinogen (<2.0) mg/dL Ur Leukocyte Esterase (Negative) Urine RBC (0-5) /hpf Urine WBC (0-5) /hpf Urine WBC Clumps (None) /hpf Ur Squamous Epith Cells (0-4) /hpf Urine Bacteria (None) /hpf Hyaline Casts (0-2) /lpf Urine Mucus (None) /hpf Coronavirus (PCR) Not Detected (Not Detectd) Influenza Type A RNA Not Detected (Not Detectd) Influenza Type B (PCR) Not Detected (Not Detectd) 07/01/20 07/01/20 Range/Units 10:21 10:21 WBC (3.8-10.6) k/uL RBC (3.80-5.40) m/uL Hgb (11.4-16.0) gm/dL Hct (34.0-46.0) % MCV (80.0-100.0) fL MCH (25.0-35.0) pg MCHC (31.0-37.0) g/dL RDW (11.5-15.5) % Plt Count (150-450) k/uL MPV Neutrophils % % Lymphocytes % % Monocytes % % Eosinophils % % Basophils % % Neutrophils # (1.3-7.7) k/uL Lymphocytes # (1.0-4.8) k/uL Monocytes # (0-1.0) k/uL Eosinophils # (0-0.7) k/uL Basophils # (0-0.2) k/uL Sodium 137 (137-145) mmol/L Potassium 3.8 (3.5-5.1) mmol/L Chloride 105 (98-107) mmol/L Carbon Dioxide 24 (22-30) mmol/L Anion Gap 8 mmol/L BUN 8 (7-17) mg/dL Creatinine 0.63 (0.52-1.04) mg/dL Est GFR (CKD-EPI)AfAm >90 (>60 ml/min/1.73 sqM) Est GFR (CKD-EPI)NonAf >90 (>60 ml/min/1.73 sqM) Glucose 89 (74-99) mg/dL Calcium 8.9 (8.4-10.2) mg/dL Total Bilirubin 0.5 (0.2-1.3) mg/dL AST 40 H (14-36) U/L ALT 63 H (4-34) U/L Alkaline Phosphatase 98 (38-126) U/L Total Protein 6.9 (6.3-8.2) g/dL Albumin 3.5 (3.5-5.0) g/dL Urine Color Light Red Urine Appearance Cloudy H (Clear) Urine pH 6.0 (5.0-8.0) Ur Specific [place] 1.022 (1.001-1.035) Urine Protein 1+ H (Negative) Urine Glucose (UA) Negative (Negative) Urine Ketones Negative (Negative) Urine Blood Large H (Negative) Urine Nitrite Negative (Negative) Urine Bilirubin Negative (Negative) Urine Urobilinogen <2.0 (<2.0) mg/dL Ur Leukocyte Esterase Large H (Negative) Urine RBC >182 H (0-5) /hpf Urine WBC >182 H (0-5) /hpf Urine WBC Clumps Moderate H (None) /hpf Ur Squamous Epith Cells 12 H (0-4) /hpf Urine Bacteria Occasional H (None) /hpf Hyaline Casts 5 H (0-2) /lpf Urine Mucus Many H (None) /hpf Coronavirus (PCR) (Not Detectd) Influenza Type A RNA (Not Detectd) Influenza Type B (PCR) (Not Detectd) Disposition Clinical Impression: UTI (urinary tract infection), Fever Disposition: HOME SELF-CARE Condition: Stable Instructions (If sedation given, give patient instructions): Urinary Tract Infection in Women (ED) Additional Instructions: Please return to the Emergency Department if symptoms worsen or any other concerns. Take antibiotic as prescribed. First dose may be taking this evening. Continue with plenty of fluids, Tylenol or Motrin for any recurrent fever. Please follow up with your [employer] MAIL [facility]ER on Friday. Prescriptions: Cephalexin [Keflex] 500 mg PO BID 5 Days #10 cap Is patient prescribed a controlled substance at d/c from ED?: No Referrals: Manda Correia MD [Primary Care Provider] - 1-2 days Hilda Smith DO [Doctor of Osteopathic Medicine] - 1-2 days
[2020-07-01 10:42] LABS: Basophils % (A) 0 %; Eosinophils # (A) 0.1 k/uL (0-0.7); Eosinophils % (A) 2 %; HCT 39.4 % (34.0-46.0); HGB 13.1 gm/dL (11.4-16.0); Lymphocytes # (A) 0.9 k/uL (1.0-4.8); Lymphocytes % (A) 11 %; MCH 29.8 pg (25.0-35.0); MCHC 33.1 g/dL (31.0-37.0); MCV 89.8 fL (80.0-100.0); Mean Platelet Volume 7.8; Monocytes # (A) 0.4 k/uL (0-1.0); Monocytes % (A) 5 %; Neutrophils # (A) 6.1 k/uL (1.3-7.7); Neutrophils % (A) 81 %; Platelet Count 301 k/uL (150-450); RBC 4.39 m/uL (3.80-5.40); RDW 13.4 % (11.5-15.5); WBC 7.6 k/uL (3.8-10.6)
[2020-07-01 10:51] LABS: Appearance,Urine Cloudy (Clear); Bacteria,Urine Occasional /hpf; Bilirubin,Urine Negative (Negative); Blood,Urine Large (Negative); Color,Urine Light Red; Glucose,Urine (UA) Negative (Negative); Hyaline Casts,Urine 5 /lpf (0-2); Ketones,Urine Negative (Negative); Leukocyte Esterase,Urine Large (Negative); Mucus,Urine Many /hpf; Nitrite,Urine Negative (Negative); Protein,Urine 1+ (Negative); RBC,Urine >182 /hpf (0-5); Specific Gravity,Urine 1.022 (1.001-1.035); Squamous Epithelial Cell,Urine 12 /hpf (0-4); Urobilinogen,Urine <2.0 mg/dL (<2.0); WBC,Urine >182 /hpf (0-5)
[2020-07-01 11:05] LABS: ALT 63 U/L (4-34); AST 40 U/L (14-36); African American GFR (CKD) >90 (>60 ml/min/1.73 sqM); Albumin 3.5 g/dL (3.5-5.0); Alkaline Phosphatase 98 U/L (38-126); Anion Gap 8 mmol/L; Blood Urea Nitrogen 8 mg/dL (7-17); Calcium 8.9 mg/dL (8.4-10.2); Carbon Dioxide 24 mmol/L (22-30); Chloride 105 mmol/L (98-107); Glucose 89 mg/dL (74-99); Non-African American GFR(CKD) >90 (>60 ml/min/1.73 sqM); Sodium 137 mmol/L (137-145); Total Bilirubin 0.5 mg/dL (0.2-1.3); Total Protein 6.9 g/dL (6.3-8.2)
[2020-07-01 11:06] LABS: Potassium 3.8 mmol/L (3.5-5.1)
[2020-07-01 11:44] VITALS: BP 134/62; PULSE 89; RESP 17; TEMP 99.5
[2020-07-01] MEDS ORDERED: CEPHALEXIN 500 MG CAP PO STA (11:49)
[2020-07-01] MEDS ORDERED: cefTRIAXone IN SWFI 1,000 MG/10 ML SYRINGE IVP STA (11:50)
== END 2020-07-01 12:06 | disposition home or self-care (01) ==
LOC: EC 09:47
DX: N39.0 Urinary tract infection, site not specified (principal); F17.200 Nicotine dependence, unspecified, uncomplicated; Z20.822 Contact with and (suspected) exposure to COVID-19
CPT/HCPCS: 36415; 80053; 85025; 81001; 87086; 87502; 87635; 99283; 96374; J0696

== ENCOUNTER 2024-02-11 10:05 | Inpatient (IN) | payer OTHER ==
[2024-02-11] MEDS ORDERED: LACTATED RINGERS 1,000 ML IV SCH (10:34)
[2024-02-11] MEDS ORDERED: OXYTOCIN 30 UNITS/500 ML NS 30 UNIT in SALINE 1 500ML.BAG IV SCH (10:34)
[2024-02-11] MEDS ORDERED: CARBOPROST TROMETHAMINE 250 MCG/ML 1 ML AMP IM PRN (10:34)
[2024-02-11] MEDS ORDERED: miSOPROStoL 200 MCG TAB PO PRN (10:34)
[2024-02-11] MEDS ORDERED: METHYLERGONOVINE 0.2 MG/ML 1 ML AMP IM PRN (10:34)
[2024-02-11] MEDS ORDERED: TRANEXAMIC 1,000 MG/100ML-NACL 1,000 MG in EMPTY BAG 1 BAG IV PRN (10:34)
[2024-02-11] MEDS ORDERED: OXYTOCIN 10 UNIT/ML 1 ML VIAL IM PRN (10:34)
[2024-02-11 10:45] LABS: Basophils % (A) 1 %; Eosinophils # (A) 0.1 k/uL (0-0.7); Eosinophils % (A) 1 %; HCT 42.4 % (34.0-46.0); HGB 14.1 gm/dL (11.4-16.0); Lymphocytes # (A) 1.6 k/uL (1.0-4.8); Lymphocytes % (A) 23 %; MCH 30.6 pg (25.0-35.0); MCHC 33.3 g/dL (31.0-37.0); MCV 91.8 fL (80.0-100.0); Mean Platelet Volume 8.2; Monocytes # (A) 0.3 k/uL (0-1.0); Monocytes % (A) 4 %; Neutrophils % (A) 70 %; Platelet Count 306 k/uL (150-450); RBC 4.62 m/uL (3.80-5.40); WBC 7.2 k/uL (3.8-10.6)
[2024-02-11] MEDS: CITRIC ACID-SODIUM CITRATE 15 ML CUP PO ONE (11:42)
[2024-02-11] MEDS ORDERED: ONDANSETRON 4 MG/2 ML VIAL ONE (12:18)
[2024-02-11] MEDS ORDERED: MORPHINE SULFATE (PF) 0.3 MG/0.3 ML SYR ONE (12:18)
[2024-02-11] MEDS ORDERED: OXYTOCIN 30 UNITS/500 ML NS BAG IV ONE (12:18)
[2024-02-11] MEDS ORDERED: KETOROLAC 15 MG/ML 1 ML VIAL ONE (12:18)
[2024-02-11] MEDS ORDERED: NALOXONE 0.4 MG/ML 1 ML VIAL IV PRN ×2 (13:04→14:22)
[2024-02-11] MEDS ORDERED: ZOLPIDEM 5 MG TAB PO PRN (14:22)
[2024-02-11] MEDS ORDERED: ONDANSETRON 4 MG/2 ML VIAL IVP PRN (14:22)
[2024-02-11] MEDS ORDERED: SIMETHICONE 80 MG CHEWABLE PO PRN (14:22)
[2024-02-11] MEDS ORDERED: diphenhydrAMINE 25 MG CAP PO PRN (14:22)
[2024-02-11] MEDS ORDERED: diphenhydrAMINE 50 MG CAP PO PRN (14:22)
[2024-02-11] MEDS ORDERED: METOCLOPRAMIDE 5 MG/ML 2 ML VIAL IVP PRN (14:22)
[2024-02-11] MEDS ORDERED: diphenhydrAMINE 50 MG/ML 1 ML VIAL IVP PRN (14:22)
[2024-02-11] MEDS: ACETAMINOPHEN TAB 500 MG TAB PO SCH (15:31)
[2024-02-11] MEDS: LACTATED RINGERS 1,000 ML IV SCH (15:31)
[2024-02-11] MEDS: KETOROLAC 15 MG/ML 1 ML VIAL IVP PRN (20:45)
[2024-02-11] MEDS: SENNOSIDES-DOCUSATE SODIUM 1 EACH TAB PO SCH (20:45)
[2024-02-11] MEDS: IBUPROFEN 600 MG TAB PO SCH (20:46)
[2024-02-12] MEDS: diphenhydrAMINE 50 MG/ML 1 ML VIAL IVP PRN (00:38)
--- NOTE | 2024-02-12 06:55 | P.PN ---
Progress Note - Text Progress Note Date: 02/12/24 (915) Anesthesia Postop day 1 Subjective: Status Post section with Duramorph. Patient seen and examined. Doing well without complaint. VAS 0. No nausea or vomiting. Mild pruritus tolerable.. Denies fever. Gross lower extremity strength intact. Without apparent anesthetic complications. Objective: Vital signs reviewed Heart: Regular Rate Lungs: Good chest excursion Abdomen: Appears nondistended Assessment: Status post section with Duramorph postop day 1 Plan: 1. Continue current care with your medical management. Anticipated end to the duration of the Duramorph around surgery time today. You may see increased pain needs around this time. 2. This note was dictated using [employer] software. Please be advised there is a potential for misspellings or errors in computer systems software architect.
[2024-02-12 07:13] LABS: Basophils % (A) 0 %; Eosinophils # (A) 0.1 k/uL (0-0.7); Eosinophils % (A) 2 %; HCT 35.1 % (34.0-46.0); HGB 11.9 gm/dL (11.4-16.0); Lymphocytes # (A) 1.4 k/uL (1.0-4.8); Lymphocytes % (A) 20 %; MCH 31.5 pg (25.0-35.0); MCHC 33.9 g/dL (31.0-37.0); MCV 92.8 fL (80.0-100.0); Monocytes # (A) 0.3 k/uL (0-1.0); Monocytes % (A) 5 %; Neutrophils # (A) 5.1 k/uL (1.3-7.7); Neutrophils % (A) 72 %; Platelet Count 227 k/uL (150-450); RBC 3.78 m/uL (3.80-5.40); WBC 7.1 k/uL (3.8-10.6)
--- NOTE | 2024-02-12 08:32 | P.HPOB ---
History of Present Illness H&P Date: 02/11/24 Chief Complaint: BREECH 28-year-old presents at 39 weeks and 1 day gestation for primary low transverse due to breech presentation. Review of Systems All systems: negative Constitutional: Denies chills, Denies fever Eyes: denies blurred vision, denies pain Ears, nose, mouth and throat: Denies headache, Denies sore throat Cardiovascular: Denies chest pain, Denies shortness of breath Respiratory: Denies cough Gastrointestinal: Denies abdominal pain, Denies diarrhea, Denies nausea, Denies vomiting Genitourinary: Denies dysuria, Denies hematuria Musculoskeletal: Denies myalgias Integumentary: Denies pruritus, Denies rash Neurological: Denies numbness, Denies weakness Psychiatric: Denies anxiety, Denies depression Endocrine: Denies fatigue, Denies weight change Past Medical History Past Medical History: Thyroid Disorder Additional Past Medical History / Comment(s): hemorrhoids History of Any Multi-Drug Resistant Organisms: None Reported Past Surgical History: No Surgical Hx Reported Past Anesthesia/Blood Transfusion Reactions: Unable to Obtain Past Psychological History: No Psychological Hx Reported Smoking Status: Vaper Past Alcohol Use History: None Reported Past Drug Use History: Marijuana - Past Family History Father History Unknown: Yes Family Medical History: Diabetes Mellitus Mother Family Medical History: Thyroid Disorder Medications and Allergies Home Medications Medication Instructions Recorded Confirmed Type [id number]/Iron/FA/O3/Dha/Epa/Fish 1 tab PO HS 05/23/20 02/11/24 History [ Multi-Dha Softgel] Aspirin [[place] Aspirin EC] 81 mg PO DAILY 02/11/24 02/11/24 History Pterostilbene 50 mg PO DAILY 02/11/24 02/11/24 History Allergies Allergy/AdvReac Type Severity Reaction Status Date / Time No Known Allergies Allergy Verified 02/11/24 10:31 Exam Osteopathic Statement: *. No significant issues noted on an osteopathic structural exam other than those noted in the History and Physical/Consult. Vital Signs Temp Pulse Resp BP Pulse Ox 02/12/24 07:51 97.7 F 67 18 96/62 99 02/12/24 03:52 97.8 F 79 16 107/76 02/12/24 00:00 97.6 F 80 16 108/72 02/11/24 20:00 98.8 F 76 16 104/69 98 02/11/24 16:11 14 02/11/24 15:00 114 H 14 129/68 02/11/24 14:45 75 16 119/68 99 02/11/24 14:30 67 16 114/65 100 02/11/24 14:15 71 16 118/67 99 02/11/24 14:04 16 100 02/11/24 14:00 72 14 111/58 99 02/11/24 13:45 77 16 107/53 99 02/11/24 13:30 76 14 125/55 98 02/11/24 13:15 69 16 108/62 98 02/11/24 13:04 14 98 02/11/24 13:00 97.4 F L 84 16 116/58 98 02/11/24 10:38 96.7 F L 82 16 138/90 Intake and Output 02/11/24 02/12/24 02/12/24 22:59 06:59 14:59 Output Total 1681 400 200 Balance -1681 -400 -200 Output: Urine 900 400 200 Uretheral (Mai) 800 Output, Quantitative 781 Blood Loss Heart: Regular rate and rhythm Lungs: Clear to auscultation bilaterally Abdomen: Soft, nontender Extremities: Negative Homans sign Results Result Diagrams: 02/12/24 07:03 Abnormal Lab Results - Last 24 Hours (Table) 02/12/24 Range/Units 07:03 RBC 3.78 L (3.80-5.40) m/uL Assessment and Plan (1) Term Current Visit: No Status: Acute Code(s): Z34.80 - ENCOUNTER FOR SUPRVSN OF NORMAL , UNSP TRIMESTER SNOMED Code(s): 93417790 (2) Breech presentation Current Visit: Yes Status: Acute Code(s): O32.1XX0 - MATERNAL CARE FOR BREECH PRESENTATION, UNSP SNOMED Code(s): 5752606 Plan: 1. Primary low transverse
--- NOTE | 2024-02-12 08:39 | P.OP ---
Date of Procedure: 02/12/24 Preoperative Diagnosis: 1. term gestation 2. breech Postoperative Diagnosis: same Procedure(s) Performed: primary low transverse Anesthesia: spinal Surgeon: Hilda Smith Medical Health Researcher #1: Jenaro Clement Estimated Blood Loss (ml): 450 IV fluids (ml): 600 Urine output (ml): 200 Pathology: none sent Condition: stable Disposition: floor Operative Findings: viable female. 9,9 weight 6#12oz Description of Procedure: Patient was taken to the operating room where spinal anesthesia was found be adequate. She was prepped and draped in normal sterile fashion in dorsal supine position with a leftward tilt. Pfannenstiel skin incision was made the scalpel and carried through to the underlying layer of fascia with the scalpel. Fascia was incised in midline and carried bilaterally with the Lewis scissors. The superior aspect of the fascial incision was grasped with Frida clamps elevated and the underlying rectus muscles dissected off with the Lewis's. Attention was then turned to inferior aspect of same incision which in a similar fashion was grasped tented up and the underlying rectus muscles dissected off with the Lewis's. The rectus muscles were the midline and the peritoneum was identified tented up and entered sharply with the scalpel. The incision was extended superiorly and inferiorly with good visualization of the bladder. The bladder blade was inserted and the vesicouterine peritoneum was incised the Metzenbaums then carried bilaterally and bladder flap created digitally. A low transverse incision was then made on the uterus with the scalpel. This was carried bilaterally and digital manner. Infant's head delivered atraumatically, nose and mouth bulb suctioned, cord clamped and cut, handed off to waiting nurses. Apgars 9,9, weight 6 lbs. 12 oz. Placenta delivered manually, intact with three-vessel cord. The uterus is exteriorized and cleared of all clots and debris. The uterine incision was closed with 0 Vicryl in a running locked fashion. Second layer of the same sutures used in imbricating fashion to obtain excellent hemostasis. Both ovaries and tubes appeared normal. The uterus was placed back into the abdomen. The fascia was reapproximated using 0 Vicryl in a running fashion. The subcutaneous tissues closed with 3-0 Vicryl running fashion. The skin was closed harman. Patient tolerated the procedure well, sponge and instrument counts were correct times 2 and she was taken to the recovery room in stable condition.
--- NOTE | 2024-02-12 08:40 | P.PNOBGPC ---
Subjective - Subjective Principal diagnosis: S/P 1*LTCS POD #1 Interval history: patient seen and examined at bedside. Patient denies nausea, vomiting, chest pain, shortness of breath or calf pain. Patient reports: Reports appetite normal, Reports voiding normally, Reports pain well controlled, Reports ambulating normally : doing well Objective - Vital Signs Latest vital signs: Vital Signs Temp Pulse Resp BP Pulse Ox 02/12/24 07:51 97.7 F 67 18 96/62 99 02/12/24 03:52 97.8 F 79 16 107/76 02/12/24 00:00 97.6 F 80 16 108/72 02/11/24 20:00 98.8 F 76 16 104/69 98 02/11/24 16:11 14 02/11/24 15:00 114 H 14 129/68 02/11/24 14:45 75 16 119/68 99 02/11/24 14:30 67 16 114/65 100 02/11/24 14:15 71 16 118/67 99 02/11/24 14:04 16 100 02/11/24 14:00 72 14 111/58 99 02/11/24 13:45 77 16 107/53 99 02/11/24 13:30 76 14 125/55 98 02/11/24 13:15 69 16 108/62 98 02/11/24 13:04 14 98 02/11/24 13:00 97.4 F L 84 16 116/58 98 02/11/24 10:38 96.7 F L 82 16 138/90 Intake and Output 02/11/24 02/12/24 02/12/24 22:59 06:59 14:59 Output Total 1681 400 200 Balance -1681 -400 -200 Output: Urine 900 400 200 Uretheral (Mai) 800 Output, Quantitative 781 Blood Loss - Exam Lungs: bilateral: normal Chest: Normal S1, Normal S2 Extremities: Present: normal Abdomen: Present: normal appearance, soft. Absent: distention, tenderness Incision: Present: normal, dry, intact Uterus: Present: normal, firm - Labs Labs: Abnormal Lab Results - Last 24 Hours (Table) 02/12/24 Range/Units 07:03 RBC 3.78 L (3.80-5.40) m/uL Assessment and Plan (1) Term Current Visit: No Status: Resolved Code(s): Z34.80 - ENCOUNTER FOR SUPRVSN OF NORMAL , UNSP TRIMESTER SNOMED Code(s): 05251056 (2) Breech presentation Current Visit: Yes Status: Resolved Code(s): O32.1XX0 - MATERNAL CARE FOR BREECH PRESENTATION, UNSP SNOMED Code(s): 1900056 (3) Status post primary low transverse section Current Visit: Yes Status: Acute Code(s): Z98.891 - HISTORY OF UTERINE SCAR FROM PREVIOUS SURGERY SNOMED Code(s): 730655256 Plan: 1. cont po care
[2024-02-12 13:46] VITALS: RESP 16
--- NOTE | 2024-02-13 08:04 | P.DS ---
Providers Date of admission: 02/11/24 10:05 Expected date of discharge: 02/13/24 Attending physician: Hilda Smith Primary care physician: Stated None - Discharge Diagnosis(es) (1) Term Current Visit: No Status: Resolved (2) Breech presentation Current Visit: Yes Status: Resolved (3) Status post primary low transverse section Current Visit: Yes Status: Acute Hospital Course: Presented for primary low transverse due to breech presentation. She underwent this procedure without complication. She denies nausea, vomiting, chest pain, shortness of breath or calf pain. Patient will be discharged home day #2 in stable condition to follow-up with me in 2 weeks. Plan - Discharge Summary New Discharge Prescriptions: New Ibuprofen [Motrin] 600 mg PO Q6H #30 tab Discontinued Aspirin [[place] Aspirin EC] 81 mg PO DAILY No Action [id number]/Iron/FA/O3/Dha/Epa/Fish [ Multi-Dha Softgel] 1 tab PO HS Pterostilbene 50 mg PO DAILY Discharge Medication List [id number]/Iron/FA/O3/Dha/Epa/Fish [ Multi-Dha Softgel] 1 tab PO HS 05/23/20 [History] Pterostilbene 50 mg PO DAILY 02/11/24 [History] Ibuprofen [Motrin] 600 mg PO Q6H #30 tab 02/13/24 [Rx] Follow up Appointment(s)/Referral(s): Hilda Smith DO [Doctor of Osteopathic Medicine] - 2 Weeks Discharge Disposition: HOME SELF-CARE
[2024-02-13 08:38] VITALS: BP 125/82; PULSE 83; TEMP 98.4
== END 2024-02-13 09:22 | disposition home or self-care (01) | DRG 540 ==
LOC: 4FBP 10:05
PROVIDERS: ADMIT Obstetrics & Gynecology; ATTEND Obstetrics & Gynecology
PROC: 10D00Z1 Extraction of Products of Conception, Low, Open Approach (ICD-10-PCS; principal; 2024-02-12)
DX: O32.1XX0 Maternal care for breech presentation, not applicable or unspecified (principal); O99.334 Smoking (tobacco) complicating childbirth; L29.9 Pruritus, unspecified; E07.9 Disorder of thyroid, unspecified; Z37.0 Single live birth; Z3A.39 39 weeks gestation of pregnancy; Z79.82 Long term (current) use of aspirin; F17.290 Nicotine dependence, other tobacco product, uncomplicated
CPT/HCPCS: 85025; 86850; 86900; 86901